=== PATIENT | male | born 1985 | race African-American/Black ===

== ENCOUNTER 2021-02-25 12:45 | Emergency (ER) | payer SELFPAY ==
[~2021-02-25] VITALS: Ht 185.4 cm; Wt 127.0 kg
[2021-02-25 12:53] VITALS: BP_SYST 106
[2021-02-25 13:09] VITALS: BP_SYST 106
== END 2021-02-25 13:09 | disposition home or self-care (01) ==
LOC: SED 12:45
DX: S10.93XA Contusion of unspecified part of neck, initial encounter (principal); Y04.0XXA Assault by unarmed brawl or fight, initial encounter; Y93.89 Activity, other specified; Y92.89 Other specified places as the place of occurrence of the external cause; Y99.8 Other external cause status
CPT/HCPCS: 99283

== ENCOUNTER 2022-08-14 22:41 | Emergency (ER) | payer SELFPAY ==
[~2022-08-14] VITALS: Ht 185.4 cm; Wt 136.1 kg
[2022-08-14 22:46] VITALS: BP_SYST 188
--- NOTE | 2022-08-14 22:50 | NUR ---
Patient to ER bed 03 to gown for evaluation. Side rails up. Report given to LEISA CHANCE.
[2022-08-14] MEDS ORDERED: NACL 0.9% 1,000 ML IV ONE (23:00)
--- NOTE | 2022-08-14 23:00 | NUR ---
# 20 gauge angiocath placed to LAC. Use of asceptic technique. Opsite placed over site. Blood return noted. Blood for lab drawn from site. Flushed with 10 cc of normal saline. No evidence of infiltration noted. Patient tolerated well.
--- NOTE | 2022-08-14 23:13 | NUR ---
PT BIBA DUE TO DRINKING A BOTTLE OF VODKA AND TAKING 4 TABLETS OF NORCOS ACCORDING TO PT. PT DENIES SUICIDE IDEATION PT DRINKS HALF OF A 750ML BOTTLE EVERY DAY AND PT STATES HE HAS BEEN DRINKING FOR A FEW YEARS. VSS BESIDES TACHYCARDIA, NAD, EVEN UNLABORED BREATHING, EYES ARE BLOODSHOT, SKIN INTACT SAFETY RAILS IN PLACE BED LOWERED TO LOWEST POSITION CONNECTED TO VS MONITOR.
[2022-08-14 23:23] LABS: BASOPHILS # (AUTO) 0.1 K/uL (0.0-0.2); BASOPHILS % (AUTO) 1.2 % (0.0-2.0); EOSINOPHILS # (AUTO) 0.1 K/uL (0.0-0.4); HEMATOCRIT 48.6 % (36-54); HEMOGLOBIN 15.8 g/dL (14.0-18.0); LYMPHOCYTES # (AUTO) 4.2 K/uL (1.0-5.5); LYMPHOCYTES % (AUTO) 57.3 % (20.5-51.5); MEAN CORPUSCULAR HEMOGLOBIN 26 pg (27-31); MEAN CORPUSCULAR HGB CONC 33 % (32-36); MEAN CORPUSCULAR VOLUME 80 fL (79.0-98.0); MONOCYTES # (AUTO) 0.6 K/uL (0.0-1.0); MONOCYTES % (AUTO) 8.1 % (1.7-9.3); NEUTROPHILS # (AUTO) 2.4 K/uL (1.8-7.7); NEUTROPHILS % (AUTO) 32.4 % (40.0-70.0); PLATELET COUNT (AUTO) 464 K/uL (130-430); RED BLOOD CELL COUNT(AUTO) 6.11 MIL/uL (4.2-6.2); RED CELL DISTRIBUTION WIDTH 14.4 % (9.0-15.0); WHITE BLOOD COUNT (AUTO) 7.4 K/uL (4.8-10.8)
[2022-08-14 23:37] LABS: ALBUMIN 4.2 g/dL (3.4-4.8); CALCIUM 8.5 mg/dL (8.4-11.0); CREATININE 1.06 mg/dL (0.55-1.30); TOTAL BILIRUBIN 0.5 mg/dL (0.0-1.0)
[2022-08-14 23:44] LABS: PROTHROMBIN TIME 10.6 SECS (9.5-12.5)
--- NOTE | 2022-08-15 | NUR ---
ER at bedside examining patient.
--- NOTE | 2022-08-15 01:25 | NUR ---
ASKED PT FOR URINE SAMPLE ABOUT 3 TIMES, PT STATES UNABLE TO PRODUCE URINE AT THIS TIME, GAVE PT BLANKET SISTER Pop WALDEN AT BEDSIDE
[2022-08-15] MEDS ORDERED: NACL 0.9% 1,000 ML IV ONE (02:00)
[2022-08-15 03:25] VITALS: BP_SYST 188
--- NOTE | 2022-08-15 03:31 | NUR ---
Patient given written and verbal discharge instructions and verbalizes understanding. ER MD discussed with patient the results and treatment provided. Patient in stable condition. ID arm band removed. IV catheter removed intact and dressing applied, no active bleeding. Patient educated on ALCOHOL DISORDER and to follow up with PMD. Opportunity for questions provided and answered. Medication side effect fact sheet provided.
== END 2022-08-15 03:31 | disposition home or self-care (01) ==
LOC: SED 22:41
DX: F10.129 Alcohol abuse with intoxication, unspecified (principal); R00.0 Tachycardia, unspecified; I10 Essential (primary) hypertension; Z79.899 Other long term (current) drug therapy; Y90.6 Blood alcohol level of 120-199 mg/100 ml
CPT/HCPCS: 99284; 96360; 80053; 85025; 85610; 36415; 93005; 96361; G0482; J7030 ×2; G0480; G0481